=== PATIENT | male | born 1980 | race Caucasian/White ===

== ENCOUNTER 2021-03-18 13:54 | Emergency (ER) | payer SELFPAY ==
[~2021-03-18] VITALS: Ht 174 cm; Wt 96.3 kg
[2021-03-18 14:00] VITALS: BP 147/101
--- NOTE | 2021-03-18 14:06 | NUR ---
PT AMBULATED TO ER BED 11 WITH A STEADY GAIT.
--- NOTE | 2021-03-18 14:15 | NUR ---
PATIENT PRESENTS TO ED WITH PAIN TO RIGHT SHOULDER X5 DAYS. PT STATES PAIN COMES/GOES AND IS 10/10 AND CAUSES DIZZINESS AND BLURRED VISION WHEN HE HAS THE PAIN. DENIES N/D WITH VOMITING THIS MORNING; SKIN IS PINK/WARM/DRY; AAOX4 WITH EVEN AND STEADY GAIT; LUNGS CLEAR BL; HR EVEN AND REGULAR; PT DENIES ANY FEVER, CP, SOB, OR COUGH AT THIS TIME; VSS; PATIENT POSITIONED FOR COMFORT; HOB ELEVATED; BEDRAILS UP X2; BED DOWN. ER MD MADE AWARE OF PT STATUS. NO HX, NKDA, MEDS
--- NOTE | 2021-03-18 14:30 | NUR ---
Patient being evaluated BY DR LUNDBERG at bedside.
[2021-03-18] MEDS ORDERED: KETOROLAC 30 MG/ML VIAL IVP ONE (14:35)
[2021-03-18] MEDS ORDERED: NACL 0.9% 1,000 ML IV SCH (14:35)
--- NOTE | 2021-03-18 14:44 | NUR ---
PT BROUGHT TO CT
--- NOTE | 2021-03-18 15:10 | NUR ---
BLOOD SPECIMEN BROUGHT TO LAB
[2021-03-18] MEDS ORDERED: ACET-8386 PO (15:34)
[2021-03-18] MEDS ORDERED: IBUP-2213 PO (15:34)
[2021-03-18 17:12] VITALS: BP 110/64
--- NOTE | 2021-03-18 17:13 | NUR ---
Patient discharged with v/s stable. Written and verbal after care instructions given and explained. Patient alert, oriented and verbalized understanding of instructions. Ambulatory with steady gait. All questions addressed prior to discharge. ID band removed. Patient advised to follow up with PMD. Rx of HYDROCOCDONE/ACETAMINOPHEN AND IBUPROFEN given. Patient educated on indication of medication including possible reaction and side effects. Opportunity to ask questions provided and answered.
== END 2021-03-18 17:13 | disposition home or self-care (01) ==
LOC: MED 13:54
DX: M54.6 Pain in thoracic spine (principal); R10.9 Unspecified abdominal pain; F17.200 Nicotine dependence, unspecified, uncomplicated
CPT/HCPCS: 74176; 81002; 96361; 96374; 99284; J1885